=== PATIENT | male | born 2000 | race Caucasian/White ===

== ENCOUNTER 2021-06-03 18:50 | Outpatient (REF) | payer SELFPAY ==
[2021-06-05 10:25] LABS: HIV-1/2 Ag & Ab Screen Negative (Negative)
[2021-06-05 10:48] LABS: Hepatitis A Antibody IgM Negative (Negative); Hepatitis B Core Antibody Negative (Negative); Hepatitis B surface Ag Negative (Negative); Hepatitis C Ab w Rflx HCV PCR Negative (Negative)
[2021-06-05 14:21] LABS: Chlamydia Result Negative (Negative); GC Result Negative (Negative)
== END 2021-06-03 18:51 | disposition home or self-care (01) ==
LOC: LBN 18:50
PROVIDERS: PCP Nurse Practitioner; Visit Provider Physician Assistant
DX: R30.0 Dysuria (principal); Z11.59 Encounter for screening for other viral diseases; Z11.4 Encounter for screening for human immunodeficiency virus [HIV]; Z11.3 Encounter for screening for infections with a predominantly sexual mode of transmission
CPT/HCPCS: 86704; 86709; 86803; 87340; 87389; 87491; 87591

== ENCOUNTER 2021-09-07 11:12 | Emergency (ER) | payer MEDICAID, SELFPAY ==
[2021-09-07 11:22] VITALS: BP 131/71; PULSE 66; RESP 18; TEMP 36.9; O2SAT 99
--- NOTE | 2021-09-07 12:15 | DI.CT_ITS ---
Exam(s) CT HEAD WO EXAM: CT HEAD WO CLINICAL HISTORY: seizure activity. TECHNIQUE: Imaging Protocol: Axial computed tomography images with coronal and sagittal reformatted images were created and reviewed COMPARISON: No exams were available for comparison FINDINGS: Ventricles and Extra axial spaces: Normal in size and morphology for the patient's age. Hemorrhage: None. Cerebral parenchyma: Normal. Midline shift: None. Brainstem/Cerebellum: Normal. Extra-axial asymmetric CSF attenuation collection adjacent to the poste romedial aspect of the right cerebellar hemisphere likely small arachnoid cyst. There is no signific ant mass effect upon the right cerebellum. Calvarium: Normal. Visualized Paranasal sinuses: Opacification of the left frontal sinus. Partial opacification of ante rior left ethmoid sinuses. Mastoids: Clear. Soft Tissues: Unremarkable. IMPRESSION: No acute intracranial process. 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 RADIATION DOSE DELIVERED: 841.93mGy.cm Total DLP DATA REPOSITORY: All CT scans at this facility are submitted to the National Radiology Data Registry (NRDR) Dose Index Registry (DIR) with the [employer] (ACR). RADIATION OPTIMIZATION: All CT scans at this facility use at least one of these dose optimization te chniques: automated exposure control; mA and/or kV adjustment per patient size (includes targeted exa ms where dose is matched to clinical indication); or iterative reconstruction.
--- NOTE | 2021-09-07 12:15 | RT.EKG_ITS ---
APPROVED REPORT Exam: Resting ECG Reason for Exam: siezure activity Patient Location: E HR:62 bpm ECG Measurements Heart Rate 62 AXIS RI 146 P 18 QRSd 93 QRS 48 QT 380 T 40 QTc 385 Conclusion Sinus rhythm...normal P axis, V-rate 60- 99 ST elev, probable normal early repol pattern...ST elevation, age<55
--- NOTE | 2021-09-07 12:21 | ED.GENADUL_ITS ---
Discharge Plan Disposition Patient Disposition: HOME Condition: Stable Discharge Details Clinical Impression: Observed seizure-like activity, Abnormal finding on CT scan Primary Care Provider: Christal Oh ED Provider: Luis Crump Home Meds and New Rx's Prescriptions: New levetiracetam [Keppra] 500 mg tablet 500 mg PO BID Qty: 60 0RF Discharge Instructions Instructions: Laceration (ED), New-Onset Seizure in Adults (ED) Additional Instructions: You have been started on a seizure medicine today called Dalia. Please take as prescribed. This is twice a day dosing and your next dose should be taken tonight. Please follow-up with neurology. Call to schedule an appointment to be seen as soon as possible. Additional outpatient diagnostic testing is indicated. No driving or operating heavy machinery until cleared by your doctor. Please contact your primary care physician to arrange follow-up. Please maintain healthy sleep habits and be sure to get plenty of rest. Return to the ER immediately for any worsening or new concerning symptoms. Referrals: [facility] [Provider Group] Christal Oh, KEN [Primary Care Provider] - Medical Decision Making 1225 --21-year-old male here this morning after having witnessed seizure like activity at 2 AM last night. Patient does have history of head trauma with concussion about 2 years ago. Consider new onset seizure. Patient has had lack of sleep recently which potentially could lower seizure threshold. Plan to obtain CT head and screening labs. Consider arrhythmia. And will check EKG. --EKG was reviewed interpreted by me: Sinus rhythm 60 bpm, ST elevation consistent with early repull pattern. Please see report. [id number] -- CT head was interpreted by radiology: IMPRESSION: 1. No hemorrhage, midline shift, CT evidence for acute territorial infarct. 2. Small well-circumscribed right paracentral extra-axial CSF attenuation posterior fossa focus without significant mass effect on adjacent cerebellar tissue and probable mild bony remodeling, likely an arachnoid cyst; differential includes amanda cisterna magna; midline structures appear present, mitigating against Dandy-Walker spectrum anomalies. 3. Complete left frontal and partial left ethmoid sinus opacification. 4. Given seizure activity, consider brain MRI for improved diagnostic sensitivity. I called and spoke with neurology rehabilitation counselor at [facility] Dr. Barrett and discussed ED presentation and course and CT imaging. CT was sent for review. He notes that lesion on CT is unlikely causing seizure but does agree with outpatient MRI and follow-up. He agrees with starting Keppra 500 twice daily until patient can follow-up and have more definitive testing including EEG. I will refer him to follow-up with Dr. Haddad. HPI General Mode of arrival: ambulatory . Date/Time Provider Initiated Documentation: 09/07/21 11:35 . Limitations to Documentation: no limitations . Information obtained by: patient . HPI Narrative: 21-year-old male here with chief complaint of seizure. Patient notes last night around 2 AM he was working on a motor vehicle injured his hand. While looking at his injury he suddenly became unresponsive and had witnessed generalized tonic-clonic seizure. Per his brother, seizure lasted approximately 3 minutes. He did not bite his tongue or have urinary incontinence. When he came to he was fully alert. He denies associated headache. No recent fever He does state that he has had poor sleep recently only getting a few hours over the past couple days. He does note that he is marijuana yesterday. His mother also smoked and had no side effects. Patient denies other drug use. He drinks alcohol once a month. Related Data Home Medications Medication Instructions Recorded Confirmed levetiracetam 500 mg tablet 500 mg PO BID #60 tabs 09/07/21 (Keppra) Previous Rx's Medication Instructions Recorded levetiracetam 500 mg tablet 500 mg PO BID #60 tabs 09/07/21 (Keppra) Allergies Allergy/AdvReac Type Severity Reaction Status Date / Time No Known Allergies Allergy Verified 09/07/21 11:32 General Stated Complaint: Seizure HENRY: 3 Review of Systems All systems reviewed & are unremarkable except as noted in HPI and below Constitutional Constitutional: Denies fever(s) Cardiovascular Cardiovascular: Denies chest pain and Denies dyspnea Respiratory Respiratory: Denies cough and Denies dyspnea Integumentary/Breasts Comments: Patient is noted insect bite left axilla that is itchy, no known recent tick bites Neurologic Neurologic: Reports as per HPI PFSH All Active Problems (Updated 09/07/21 @ 15:25 by Luis Crump MD) Observed seizure-like activity (Acute) Abnormal finding on CT scan (Acute) Axillary hyperhidrosis (Acute) Depression (Chronic) Anxiety (Chronic) Family History Mother Alcohol abuse Father Asthma Sister , 26 car accident No problems noted. Sister No problems noted. Brother Alcohol abuse Brother No problems noted. Paternal Grandfather Diabetes Social History Smoking/Tobacco Use Status: Former Tobacco Use tobacco type: cigarettes Tobacco: How many years used: 10 Quit status: considering quitting Second Hand Exposure: Yes Smoking risk assessment performed?: Yes Alcohol Intake: current Alcohol Intake frequency: a few times a month Drug use: Rarely Substance use type: marijuana Caregiver/Support person: No Household members: significant other Pets and animals: Yes Pets and animals: cat(s) Sexually active: Yes What is your relationship status?: living with partner How often do you talk on the phone with friends or family?: three or more times per week How often do you get together with friends or relatives?: once per week How often do you attend hindu or cheondoism services?: decline to answer Do you belong to any clubs or organized social groups?: decline to answer Panel score (0-1 are the most socially isolated patients): 2 What type of physical activity do you participate in: weight lifting and running Duration: 15-30 minutes/day Frequency: daily Berenice/Quaker: No preference Special berenice needs: No Seatbelt use: sometimes Helmet use: Yes Drive intox or ride w/intox trailer truck driver: No Do you feel safe at home: Yes Do you feel safe in your relationship?: Yes Exam Const General: cooperative and no acute distress HENMT Head: normocephalic and atraumatic Mouth: moist mucous membranes Eyes Conjunctivae: normal conjunctivae Sclera: normal sclerae EOM: EOM intact bilaterally Resp Auscultation: clear to auscultation bilaterally, no rales, no rhonchi and no wheezes Cardio Rate: regular rate and not tachycardic Rhythm: regular rhythm GI Palpation: soft, not firm, no guarding, no masses, not rigid and nontender Skin Other: Small bite left axilla with very mild surrounding redness, no induration or fluctuance Neuro General: patient alert, patient awake, patient oriented x3 and tone normal Cranial Nerves: CN's II-XI intact bilaterally Cognition: normal cognition Speech: speech normal Gait: normal gait Motor: muscle tone normal throughout and strength 5/5 throughout Sensory Exam: no sensory deficits noted Extrem General: no edema Psych Appearance: grossly normal Mental Status: mental status grossly normal Speech and Movement: speech and movement normal Course Vital Signs Vital signs: Vital Signs Temperature 36.9 C 09/07/21 11:22 Pulse 66 09/07/21 11:22 Respiratory Rate 18 09/07/21 11:22 Blood Pressure 131/71 09/07/21 11:22 Pulse Oximetry 99 09/07/21 11:22 Temperature 36.9 C 09/07/21 11:22 Temperature Source Skin 09/07/21 11:22 Pulse 66 09/07/21 11:22 Respiratory Rate 18 09/07/21 11:22 Blood Pressure 131/71 09/07/21 11:22 Blood Pressure Position Sitting 09/07/21 11:22 Pulse Oximetry 99 09/07/21 11:22 Oxygen Delivery Method Room Air 09/07/21 11:22 Oxygen Flow Rate 0 09/07/21 11:22 Pain Level 5 09/07/21 11:22
[2021-09-07 12:49] LABS: Abs Immature Grans 0.02 10^3/uL (0.0-0.06); Absolute Basophil Count 0.07 10^3/uL (0.0-0.2); Absolute Eosinophil Count 0.56 10^3/uL (0.0-0.7); Absolute Lymphocyte Count 1.23 10^3/uL (1.2-3.4); Absolute Monocyte Count 0.74 10^3/uL (0.1-0.8); Absolute Neutrophil Count 5.58 10^3/uL (1.2-6.7); Basophils % 0.9; Eosinophils % 6.8; HCT 47.6 % (40.0-50.0); HGB 16.1 g/dL (13.5-17.5); Immature Grans % 0.2; MCH 30.6 pg (27.0-33.0); MCHC 33.8 % (32.0-36.0); MCV 91 fL (80-95); MPV 9.6 fL (8.0-11.0); Neutrophils % 68.1; Platelet Count 234 10^3/uL (130-400); RBC 5.26 10^6/uL (4.36-5.78); RDW 12.2 % (11.8-14.1); RDW-SD 40.4 fL
[2021-09-07 13:14] LABS: ALT 23 U/L (16-63); AST 18 U/L (15-37); Albumin 4.2 g/dL (3.4-5.0); Alkaline Phosphatase 143 U/L (46-116); Anion Gap 7.6 mmol/L (3-11); BUN 15 mg/dL (7-18); Bilirubin, Total 0.8 mg/dL (0.2-1.0); CO2 28.4 mmol/L (21.0-32.0); CREATININE 1.1 mg/dL (0.70-1.30); Calcium 8.9 mg/dL (8.5-10.1); Chloride 108 mmol/L (98-107); Glucose 75 mg/dL (74-106); Magnesium 2.2 mg/dL (1.8-2.4); Potassium 4.2 mmol/L (3.5-5.1); Sodium 144 mmol/L (136-145); TSH (W/Ref FT4) 0.41 uIU/mL (0.36-3.74); Total Protein 7.6 g/dL (6.4-8.2)
--- NOTE | 2021-09-07 13:45 | DI.VRAD_ITS ---
PROCEDURE INFORMATION: Exam: CT Head Without Contrast Exam date and time: 09/07/2021 1:08 PM Age: 21 years old Clinical indication: Other: Seizure activity TECHNIQUE: Imaging protocol: Computed tomography of the head without contrast. Radiation optimization: All CT scans at this facility use at least one of these dose optimization techniques: automated exposure control; mA and/or kV adjustment per patient size (includes targeted exams where dose is matched to clinical indication); or iterative reconstruction. COMPARISON: No relevant prior studies available. FINDINGS: Brain: Normal. No hemorrhage. Unremarkable white matter. No mass effect. Small well-circumscribed right paracentral extra-axial CSF attenuation posterior fossa focus without significant mass effect on adjacent cerebellar tissue and probable mild bony remodeling, likely an arachnoid cyst; differential includes amanda cisterna magna; midline structures appear present, mitigating against Dandy-Walker spectrum anomalies. Cerebral ventricles: No ventriculomegaly. Paranasal sinuses: Complete opacification of the left frontal sinus, partial opacification of the left ethmoid sinus. No fluid levels. Mastoid air cells: Visualized mastoid air cells are well aerated. Bones/joints: Unremarkable. No acute fracture. Soft tissues: Unremarkable. IMPRESSION: 1. No hemorrhage, midline shift, CT evidence for acute territorial infarct. 2. Small well-circumscribed right paracentral extra-axial CSF attenuation posterior fossa focus without significant mass effect on adjacent cerebellar tissue and probable mild bony remodeling, likely an arachnoid cyst; differential includes amanda cisterna magna; midline structures appear present, mitigating against Dandy-Walker spectrum anomalies. 3. Complete left frontal and partial left ethmoid sinus opacification. 4. Given seizure activity, consider brain MRI for improved diagnostic sensitivity. Dictated and Authenticated by: Agnes Harrison MD. Ordering:CARLOS Smith MD
[2021-09-07 13:53] VITALS: BP 118/90; PULSE 58; RESP 18; O2SAT 99
--- NOTE | 2021-09-07 15:38 | NUR.NOTE ---
Nursing Note: Referral faxed to [facility] Neurology for new onset seizure, posterior fossa lesion, needs MRI, within the next couple of weeks.
[2021-09-07 15:44] VITALS: BP 125/85; PULSE 70; RESP 16; TEMP 37.2; O2SAT 99
[2021-09-07] MEDS: levETIRAcetam 250 MG TAB 500 MG PO (16:03)
[2021-09-09 11:56] LABS: Lyme Ab w Rflx to Lyme Confirm Negative (Negative)
[2021-09-10 21:42] LABS: Anaplasma phagocytophilum Negative (Negative); B. miyamotoi PCR Negative (Negative); Babesia divergens/MO-1 Negative (Negative); Babesia duncani Negative (Negative); Babesia microti Negative (Negative); Ehrlichia chaffeensis Negative (Negative); Ehrlichia ewingii/canis Negative (Negative); Ehrlichia muris eauclairensis Negative (Negative)
== END 2021-09-07 16:02 | disposition home or self-care (01) ==
PROVIDERS: Emergency Provider Student in an Organized Health Care Education/Training Program; PCP Nurse Practitioner
DX: R56.9 Unspecified convulsions (principal); R93.0 Abnormal findings on diagnostic imaging of skull and head, not elsewhere classified
CPT/HCPCS: 36415; 80053; 87798; 90471; 93005; 99284; 70450; 83735; 84443; 85025; 86618; 93010

== ENCOUNTER 2021-09-30 03:24 | Outpatient (CLI) | payer SELFPAY | END 2021-09-30 03:25 | disposition home or self-care (01) | LOC: LBO 03:27 | PROVIDERS: PCP Nurse Practitioner; Visit Provider Nurse Practitioner ==

== ENCOUNTER 2021-10-08 01:33 | Outpatient (CLI) | payer SELFPAY ==
--- OUTSIDE RECORDS SUMMARY | 2021-10-08 02:00 | XMS_ITS | Encounter Summary ---
:2000 Author Organization [facility] Address [address] [place] [address] Care Team Providers Name Role Phone Keenan Calvillo MD Primary Care Provider Unavailable Encounter Details Date Type Department Care Team Description 06/04/2021 Lab Requisition [facility] Outr Resulting Lab, Pathology & Laboratory Provider [facility] [address] [place], [place] [id number] Social History Tobacco Use Types Packs/Day Years Used Date Never Assessed Sex Assigned at Date Recorded Not on file documented as of this encounter Plan of Treatment Not on filedocumented as of this encounter Procedures Procedure Name Priority Date/Time Associated Comments Diagnosis CHLAMYDIA/N. Routine 06/03/2021 18:40 Results for this GONORRHOEAE AMPLIFIED EDT proced ure are in RNA the results section. documented in this encounter Results CHLAMYDIA/N. GONORRHOEAE AMPLIFIED RNA (06/03/2021 18:40 EDT) Pathologist Sig nature Gonococcus Result Negative Negative [facility] Chlamydia Result Negative Negative [facility] Specimen Urine - Urine, Initial Void Performing Organization Address City/State/ZIP Code Phon e Number [facility] [address] [place] [address] SERVICES documented in this encounter Visit Diagnoses Not on filedocumented in this encounter Care Teams Liaison Officer Relationship Specialty Start Date End Date Keenan Calvillo MD PCP - General 02/01/15 documented as of this encounter
--- OUTSIDE RECORDS SUMMARY | 2021-10-08 02:00 | XMS_ITS | Encounter Summary ---
:2000 Author Organization [facility] Address [address] [place] [address] Care Team Providers Name Role Phone Keenan Calvillo MD Primary Care Provider Unavailable Encounter Details Date Type Department Care Team Description 06/04/2021 Lab Requisition [facility] Outr Resulting Lab, Pathology & Laboratory Provider [facility] [address] [place], [place] [id number] Social History Tobacco Use Types Packs/Day Years Used Date Never Assessed Sex Assigned at Date Recorded Not on file documented as of this encounter Plan of Treatment Not on filedocumented as of this encounter Procedures Procedure Name Priority Date/Time Associated Comments Diagnosis HIV 1/2 ANTIGEN AND Routine 06/03/2021 18:40 Resu lts for this ANTIBODY, 4TH EDT procedure are in GENERATION the results section. documented in this encounter Results HIV 1/2 ANTIGEN AND ANTIBODY, 4TH GENERATION (06/03/2021 18:40 EDT) HIV 1 and 2 NegativeComment: If Negative [facility] Antibody/p24 acute HIV-1 LABORATORY Antigen, 4th infection is SERVICES Generation suspected in a high risk patient, submit plasma specimen for HIV-1 RNA quantitation test. Specimen Blood - Venous blood (substance) Narrative [facility] - 06/05/2021 10:20 EDT Fourth Generation assay performed on the Siemens Centaur XPT. Performing Organization Address City/State/ZIP Code Phon e Number [facility] [address] [place] [address] SERVICES documented in this encounter Visit Diagnoses Not on filedocumented in this encounter Care Teams Student Teaching Coordinator Relationship Specialty Start Date End Date Keenan Calvillo MD PCP - General 02/01/15 documented as of this encounter
--- OUTSIDE RECORDS SUMMARY | 2021-10-08 02:00 | XMS_ITS | Encounter Summary ---
:2000 Author Organization [facility] Address [address] [place] [address] Care Team Providers Name Role Phone Keenan Calvillo MD Primary Care Provider Unavailable Encounter Details Date Type Department Care Team Description 09/07/2021 Lab Requisition [facility] Outr Resulting Lab, Pathology & Laboratory Provider [facility] [address] [place] [id number] Social History Tobacco Use Types Packs/Day Years Used Date Never Assessed Sex Assigned at Date Recorded Not on file documented as of this encounter Plan of Treatment Not on filedocumented as of this encounter Procedures Procedure Name Priority Date/Time Associated Diagnosis Comme nts LYME AB Routine 09/07/2021 12:45 EDT Results for this procedure are i n the results section . documented in this encounter Results LYME AB (09/07/2021 12:45 EDT) Pathologist Sig nature Lyme Ab Negative Negative [facility] Specimen Blood - Venous blood (substance) Performing Organization Address City/State/ZIP Code Phon e Number [facility] [address] [place] [address] SERVICES documented in this encounter Visit Diagnoses Not on filedocumented in this encounter Care Teams Safety Physician Relationship Specialty Start Date End Date Keenan Calvillo MD PCP - General 02/01/15 documented as of this encounter
--- OUTSIDE RECORDS SUMMARY | 2021-10-08 02:00 | XMS_ITS | Encounter Summary ---
:2000 Author Organization [facility] Address [address] [place] [address] Care Team Providers Name Role Phone Unavailable Primary Care Provider Unavailable Encounter Details Date Type Department Care Team Description 03/20/2000 Hospital Encounter [facility] D[facility] [address] [address] [place] [id number] (Wo rk) Social History Tobacco Use Types Packs/Day Years Used Date Never Assessed Sex Assigned at Date Recorded Not on file documented as of this encounter Discharge Disposition Disposition Code Departure Means Destination Auto Discharge documented in this encounter Plan of Treatment Not on filedocumented as of this encounter Visit Diagnoses Not on filedocumented in this encounter
--- OUTSIDE RECORDS SUMMARY | 2021-10-08 02:00 | XMS_ITS | Clinical Summary ---
:2000 Author Organization [facility] Address [address] [place] [address] Care Team Providers Name Role Phone Keenan Calvillo MD Primary Care Provider Unavailable Encounters Date Type Specialty Care Team Description 09/07/2021 Lab Requisition Clinical Laboratory Outr Resulting Lab , Provider from Last 3 Months Social History Tobacco Use Types Packs/Day Years Used Date Never Assessed Sex Assigned at Date Recorded Not on file Plan of Treatment Health Maintenance Due Date Last Done Comments Hepatitis C Screen 2000 COVID-19 Vaccine (1) 2003 Procedures Procedure Name Priority Date/Time Associated Diagnosis Comme nts LYME AB Routine 09/07/2021 12:45 EDT Results for this procedure are i n the results section . from Last 3 Months Results LYME AB (09/07/2021 12:45 EDT) Pathologist Sig nature Lyme Ab Negative Negative [facility] Specimen Blood - Venous blood (substance) Performing Organization Address City/State/ZIP Code Phon e Number [facility] [address] [place] [address] SERVICES from Last 3 Months Care Teams Rn Hospital Relationship Specialty Start Date End Date Keenan Calvillo MD PCP - General 02/01/15
== END 2021-10-08 01:34 | disposition home or self-care (01) ==
LOC: LBO 01:34
PROVIDERS: PCP Nurse Practitioner; Visit Provider Nurse Practitioner

== ENCOUNTER → 2021-10-11 01:29 | Outpatient (CLI) | payer SELFPAY | PROVIDERS: PCP Nurse Practitioner; Visit Provider Nurse Practitioner ==

== ENCOUNTER 2021-11-06 02:51 | Outpatient (CLI) | payer MEDICAID, SELFPAY ==
[2021-11-06 13:46] LABS: ALT 21 U/L (16-63); AST 16 U/L (15-37); Alkaline Phosphatase 131 U/L (46-116); Bilirubin, Total 0.6 mg/dL (0.2-1.0); Calculated LDL 36 mg/dL (<100); Cholesterol 102 mg/dL (<200); HDL Cholesterol 57 mg/dL (40-60); Total Protein 7.6 g/dL (6.4-8.2); Triglyceride 48 mg/dL (<150)
[2021-11-06 13:59] LABS: Bilirubin, Direct 0.2 mg/dL (0.0-0.2)
== END 2021-11-06 02:52 | disposition home or self-care (01) ==
LOC: LBO 02:51
PROVIDERS: PCP Nurse Practitioner; Visit Provider Nurse Practitioner
DX: R74.8 Abnormal levels of other serum enzymes (principal); Z13.6 Encounter for screening for cardiovascular disorders
CPT/HCPCS: 36415; 80061; 80076

== ENCOUNTER → 2021-11-14 00:52 | Outpatient (CLI) | payer MEDICAID, SELFPAY ==
--- NOTE | 2021-11-14 07:15 | DI.MRI_ITS ---
Exam(s) MR BRAIN WO EXAM: MR BRAIN WO CLINICAL HISTORY: f/u abn CT, seizures,R93.89,R56.9 TECHNIQUE: Multiplanar multisequence MRI of the brain was performed. COMPARISON: CT CT HEAD WO from 09/07/2021 FINDINGS: The ventricular system is normal in appearance. Incidental small posterior fossa arachnoid cyst noted . No signal abnormality identified in the brain. The orbital and temporal bone structures appear intact as does the pituitary. Diffusion weighted imaging shows no evidence of infarction. Susceptibility weighted imaging shows no evidence of intracranial hemorrhage. There is normal flow void in the [place] vasculature. Note is made of abnormal signal in the left frontal sinus consistent with a chronic sinusitis. No gr oss sinus cavity expansion noted. Some ethmoid involvement is also noted on the left. IMPRESSION: Normal brain MRI. Left frontal chronic sinusitis. DATA REPOSITORY:
== END ==
PROVIDERS: PCP Nurse Practitioner; Visit Provider Nurse Practitioner
DX: R56.9 Unspecified convulsions (principal); J32.1 Chronic frontal sinusitis; R93.89 Abnormal findings on diagnostic imaging of other specified body structures
CPT/HCPCS: 70551

== ENCOUNTER 2022-02-05 13:49 | Outpatient (REF) | payer MEDICAID, SELFPAY ==
[2022-02-07 14:43] LABS: Chlamydia Result Negative (Negative); GC Result Negative (Negative)
== END 2022-02-05 13:50 | disposition home or self-care (01) ==
LOC: LBN 13:49
PROVIDERS: Physician Assistant; PCP Nurse Practitioner Family; Visit Provider Nurse Practitioner Family
DX: Z11.3 Encounter for screening for infections with a predominantly sexual mode of transmission (principal)
CPT/HCPCS: 87491; 87591

== ENCOUNTER 2022-04-28 16:22 | Outpatient (REF) | payer MEDICAID, SELFPAY ==
[2022-04-30 15:06] LABS: Chlamydia Result Negative (Negative); GC Result Negative (Negative)
== END 2022-04-28 16:23 | disposition home or self-care (01) ==
LOC: LBN 16:22
PROVIDERS: PCP Nurse Practitioner Family; Visit Provider Nurse Practitioner Family
DX: Z11.3 Encounter for screening for infections with a predominantly sexual mode of transmission (principal); L98.8 Other specified disorders of the skin and subcutaneous tissue
CPT/HCPCS: 87491; 87591; 87070; 87205

== ENCOUNTER 2022-04-28 16:26 | Outpatient (CLI) | payer MEDICAID, SELFPAY ==
[2022-04-28 17:05] LABS: Abs Immature Grans 0.02 10^3/uL (0.0-0.06); Absolute Basophil Count 0.08 10^3/uL (0.0-0.2); Absolute Eosinophil Count 0.44 10^3/uL (0.0-0.7); Absolute Lymphocyte Count 1.85 10^3/uL (1.2-3.4); Absolute Monocyte Count 0.61 10^3/uL (0.1-0.8); Absolute Neutrophil Count 4.65 10^3/uL (1.2-6.7); Eosinophils % 5.8; HCT 50.8 % (40.0-50.0); HGB 16.8 g/dL (13.5-17.5); Immature Grans % 0.3; Lymphocytes % 24.2; MCH 30.9 pg (27.0-33.0); MCHC 33.1 % (32.0-36.0); MCV 93 fL (80-95); MPV 9.3 fL (8.0-11.0); Neutrophils % 60.7; Platelet Count 267 10^3/uL (130-400); RBC 5.44 10^6/uL (4.36-5.78); RDW 12.3 % (11.8-14.1); RDW-SD 42.1 fL; WBC 7.65 10^3/uL (4.4-10.8)
[2022-04-28 17:54] LABS: Lipase 47 U/L (16-77)
[2022-04-30 10:10] LABS: HIV-1/2 Ag & Ab Screen Negative (Negative)
[2022-04-30 10:20] LABS: HSV Type 1 Ab, IgG Positive (Negative); HSV Type 2 Ab, IgG Negative (Negative)
[2022-04-30 10:29] LABS: Hepatitis C Ab w Rflx HCV PCR Negative (Negative)
[2022-04-30 10:43] LABS: Syphilis Serology (RPR) Negative (Negative)
== END 2022-04-28 16:27 | disposition home or self-care (01) ==
PROVIDERS: PCP Nurse Practitioner Family; Visit Provider Nurse Practitioner Family
DX: R10.9 Unspecified abdominal pain (principal); L98.8 Other specified disorders of the skin and subcutaneous tissue
CPT/HCPCS: 36415; 83690; 86803; 87389; 87529; 85025; 86592; 86695; 86696

== ENCOUNTER 2022-08-21 06:24 | Emergency (ER) | payer MEDICAID, SELFPAY ==
[2022-08-21 06:27] VITALS: BP 144/83; PULSE 68; RESP 16; O2SAT 100
[2022-08-21 06:35] VITALS: RESP 16
--- NOTE | 2022-08-21 06:38 | ED.GENADUL_ITS ---
Discharge Plan Disposition Patient Disposition: Home Condition: Good Discharge Details Clinical Impression: Gastric irritation, Vomiting Primary Care Provider: Misti Jean Baptiste ED Provider: Mario Marcelo Home Meds and New Rx's Prescriptions: New famotidine 40 mg tablet 40 mg PO BID Qty: 30 0RF sucralfate [Carafate] 1 gram tablet 1 g PO BID Qty: 60 0RF Continued omeprazole 20 mg capsule,delayed release(DR/EC) 20 mg PO DAILY Qty: 60 0RF Patient Comments: not taking Discharge Instructions Instructions: Gastritis (ED) Additional Instructions: At this time your laboratory work-up has shown no evidence of significant poisoning. I suspect your symptoms are from an irritated gastric ulcer. Please avoid any spicy foods, tomato-based products, alcohol, or citrus-based products. Please take the famotidine and Carafate that has been prescribed to you and sent to your pharmacy. If you notice any worsening of your symptoms, or any new symptoms such as vomiting, diarrhea, fever, chills, shortness of breath, chest pain, numbness, weakness, or fainting , please return immediately to the emergency department for reevaluation. Please follow up with your primary care provider as soon as possible for reassessment and reevaluation. As always, it was a pleasure participating in your medical care today. Referrals: Misti Jean Baptiste, KEN [Primary Care Provider] - Medical Decision Making 22-year-old male presents today for evaluation of an acid like sensation in his mouth. Patient states that he took a swig of santa liquor last evening from a brand-new bottle. He states that it tasted acidic, and he did not take any more swigs. He states that shortly thereafter he felt nauseous, and about an hour or so later he felt more nauseous and had few episodes of vomiting. He took a shower, when he woke up this morning he noticed an acid taste in his mouth, drank 2 sodas and came to the ER for further evaluation. He is concerned that the brand-new bottle of liquor may have had moronic acid in it however he denies anyone breaking into his apartment. He states that the alcohol was in a brand-new sealed bottle which he bought from the liquor store in [place], and he states that no one could have laced it at his house. Upon further questioning he does not have a specific reason as to why it may have been that acid in particular, but he states that he is concerned that it may have been that acid because of the current acid taste in his mouth. He has no other complaints at this time. No blood in his vomitus. No diarrhea. Physical exam demonstrates dry mucous membranes, nontender abdomen, stable vital signs. I suspect the patient had alcohol which developed mild alcoholic gastritis. He then subsequently had vomiting and is tasting the stomach acid in his mouth. Low likelihood for potential for toxic ingestion otherwise. We will rehydrate give Carafate and GI cocktail, monitor closely and reassess. He states he is not a regular alcohol drinker otherwise. 7:40 AM Laboratory work-up has returned, mildly elevated white count, bilirubin slightly elevated as well at 1.3. BUN high at 21 suggestive of mild dehydration. Alk phos also elevated. Lipase normal. Alcohol level negative. On reassessment the patient has vomited again. He now complains of pain in the umbilical and right upper quadrant region. Minimal tenderness on exam. With the elevation in his bilirubin, this does certainly increase concern for potential gallbladder pathology. Appendicitis less likely but on the differential now as the patient's exam has changed. We will add a CAT scan with contrast for further assessment. If the CAT scan is negative I do feel that the patient would still be a good candidate potentially for discharge if no acute process is noted. I will prescribe Carafate and famotidine for outpatient use as I still have a high suspicion for gastric irritation and mild clinical gastritis. Patient will be signed out to my colleague for follow-up on labs and imaging. HPI General Date/Time Provider Initiated Documentation: 08/21/22 06:27 . HPI Narrative: 22-year-old male presents today for evaluation of an acid like sensation in his mouth. Patient states that he took a swig of santa liquor last evening from a brand-new bottle. He states that it tasted acidic, and he did not take any more swigs. He states that shortly thereafter he felt nauseous, and about an hour or so later he felt more nauseous and had few episodes of vomiting. He took a shower, when he woke up this morning he noticed an acid taste in his mouth, drank 2 sodas and came to the ER for further evaluation. He is concerned that the brand-new bottle of liquor may have had moronic acid in it however he denies anyone breaking into his apartment. He states that the alcohol was in a brand-new sealed bottle which he bought from the liquor store in [place], and he states that no one could have laced it at his house. Upon further questioning he does not have a specific reason as to why it may have been that acid in particular, but he states that he is concerned that it may have been that acid because of the current acid taste in his mouth. He has no other complaints at this time. No blood in his vomitus. No diarrhea. Related Data Home Medications Medication Instructions Recorded Confirmed omeprazole 20 mg capsule,delayed 20 mg PO DAILY #60 caps 12/10/21 08/21/22 release famotidine 40 mg tablet 40 mg PO BID #30 tabs 08/21/22 sucralfate 1 gram tablet (Carafate) 1 g PO BID #60 tabs 08/21/22 Previous Rx's Medication Instructions Recorded omeprazole 20 mg capsule,delayed 20 mg PO DAILY #60 caps 12/10/21 release famotidine 40 mg tablet 40 mg PO BID #30 tabs 08/21/22 sucralfate 1 gram tablet (Carafate) 1 g PO BID #60 tabs 08/21/22 Allergies Allergy/AdvReac Type Severity Reaction Status Date / Time No Known Allergies Allergy Verified 08/21/22 06:38 General Stated Complaint: OD/Poison HENRY: 3 Review of Systems All systems reviewed & are unremarkable except as noted in HPI and below PFSH All Active Problems (Updated 08/21/22 @ 07:24 by Mario Marcelo DO) Gastric irritation (Acute) Vomiting (Acute) Elevated alkaline phosphatase level (Acute) Axillary hyperhidrosis (Acute) Depression (Chronic) Anxiety (Chronic) Medical History Infestation by Phthirus pubis Family History Mother Alcohol abuse Father Asthma Sister , 26 car accident No problems noted. Sister No problems noted. Brother Alcohol abuse Brother No problems noted. Paternal Grandfather Diabetes Social History Smoking/Tobacco Use Status: Current every day Tobacco Type: cigarettes Tobacco: How many years used: 10 Quit status: considering quitting Second Hand Exposure: Yes Smoking risk assessment performed?: Yes Alcohol Intake: current Alcohol Intake frequency: a few times a month Drug use: Rarely Substance use type: does not use Caregiver/Support person: No Household members: significant other Pets and animals: Yes Pets and animals: cat(s) Sexually active: Yes What is your relationship status?: living with partner How often do you talk on the phone with friends or family?: three or more times per week How often do you get together with friends or relatives?: once per week How often do you attend mosque or anabaptist services?: decline to answer Do you belong to any clubs or organized social groups?: decline to answer Panel score (0-1 are the most socially isolated patients): 2 What type of physical activity do you participate in: weight lifting and running Duration: 15-30 minutes/day Frequency: daily Berenice/Taoist: No preference Special berenice needs: No Seatbelt use: sometimes Helmet use: Yes Drive intox or ride w/intox motor vehicle escort driver: No Do you feel safe at home: Yes Do you feel safe in your relationship?: Yes Exam Narrative Exam Narrative: 1.Const: Well-nourished, Well-developed, appearing stated age 2.Eyes: PERRL, no conjunctival injection, and symmetrical lids. 3.ENT: Atraumatic external nose and ears. Moist MM. Neck: Symmetric, trachea midline, No thyromegaly. 4.CVS: +S1/S2, No murmurs or gallops. Peripheral pulses 2+ and equal in all extremities. Brisk capillary refill in all extremities. 5.RESP: Unlabored respiratory effort. Clear to auscultation bilaterally. No wheezes rales or rhonchi 6.GI: Soft, Nontender/Nondistended, No hepatosplenomegaly. No guarding or rebound. 7.MSK: Normocephalic/Atraumatic, Extremities w/o deformity or ttp No cyanosis or clubbing, Normal movement of all extremities 8.Skin: Warm, Dry. No rashes or lesions. 9.Neuro: emergency room orderly II-XII grossly intact. Sensation grossly intact, no focal neurologic deficits. 10.Psych: (AAO) x3. Appropriate mood and affect Course Vital Signs Vital signs: Vital Signs Pulse 68 08/21/22 06:27 Respiratory Rate 16 08/21/22 06:27 Blood Pressure 144/83 H 08/21/22 06:27 Pulse Oximetry 100 08/21/22 06:27 Temperature Source Oral 08/21/22 06:27 Pulse 68 08/21/22 06:27 Respiratory Rate 16 08/21/22 06:35 Respiratory Effort Normal 08/21/22 06:35 Respiratory Depth Normal 08/21/22 06:35 Respiratory Pattern Normal 08/21/22 06:35 Blood Pressure 144/83 H 08/21/22 06:27 Pulse Oximetry 100 08/21/22 06:27 Oxygen Delivery Method Room Air 08/21/22 06:27 Oxygen Flow Rate 0 08/21/22 06:27 Pain Level 4 08/21/22 06:27 Comment burning, squeezing abdominal pain 08/21/22 06:27
[2022-08-21] MEDS: Normal Saline 1,000 ML 1000 ML IV (06:44)
[2022-08-21] MEDS: Sucralfate 1 GM TAB PO (06:44)
[2022-08-21 06:50] LABS: Abs Immature Grans 0.04 10^3/uL (0.0-0.06); Absolute Basophil Count 0.05 10^3/uL (0.0-0.2); Absolute Eosinophil Count 0.35 10^3/uL (0.0-0.7); Absolute Lymphocyte Count 0.75 10^3/uL (1.2-3.4); Absolute Neutrophil Count 11.24 10^3/uL (1.2-6.7); Basophils % 0.4; Eosinophils % 2.7; HCT 50.6 % (40.0-50.0); HGB 17.6 g/dL (13.5-17.5); Immature Grans % 0.3; Lymphocytes % 5.7; MCH 30.8 pg (27.0-33.0); MCHC 34.8 % (32.0-36.0); MCV 89 fL (80-95); MPV 9.5 fL (8.0-11.0); Monocytes % 5.3; Neutrophils % 85.6; Platelet Count 187 10^3/uL (130-400); RBC 5.72 10^6/uL (4.36-5.78); RDW-SD 39.1 fL; WBC 13.13 10^3/uL (4.4-10.8)
[2022-08-21] MEDS: Mylanta Suspension 30 ML CUP (06:56)
[2022-08-21 07:26] LABS: ALT 36 U/L (16-63); AST 24 U/L (15-37); Albumin 4.7 g/dL (3.4-5.0); Alkaline Phosphatase 153 U/L (46-116); Anion Gap 11.9 mmol/L (3-11); BUN 21 mg/dL (7-18); Bilirubin, Total 1.3 mg/dL (0.2-1.0); CO2 25.1 mmol/L (21.0-32.0); CREATININE 1.2 mg/dL (0.70-1.30); Calcium 9.5 mg/dL (8.5-10.1); Chloride 104 mmol/L (98-107); Glucose 89 mg/dL (74-106); Lipase 54 U/L (16-77); Potassium 4.1 mmol/L (3.5-5.1); Sodium 141 mmol/L (136-145)
[2022-08-21 07:28] LABS: ETHANOL BLOOD < 3.0 mg/dL (<10)
--- NOTE | 2022-08-21 07:30 | DI.CT_ITS ---
Exam(s) CT ABDOMEN PELVIS W EXAM: CT ABDOMEN PELVIS W CLINICAL HISTORY: ruq and rlq pain, r/o gb and appe. TECHNIQUE: Imaging Protocol: Axial computed tomography images with coronal and sagittal reformatted images were created and reviewed CONTRAST MATERIAL: Intravenous: Omnipaque-350 100cc Oral: None COMPARISON: No exams were available for comparison FINDINGS: VISUALIZED LUNG BASES: No nodules nor pleural effusions evident. ABDOMEN: There is no ascites. LIVER: There are no focal hepatic lesions evident. No dilated intrahepatic ducts. GALLBLADDER/BILIARY: No obvious gallbladder pathology. CBD is not dilated. PANCREAS: No evidence of pancreatic mass nor dilatation of the pancreatic duct. SPLEEN: Spleen is not enlarged. No obvious intrasplenic lesions. Splenic and portal veins are paten t. ADRENALS: There are no significant adrenal masses. KIDNEYS:Left kidney unremarkable. Right kidney slightly malrotated but otherwise unremarkable. The right kidney exhibits an extrarenal pelvis but no true hydronephrosis. Ureters are not dilated. No obvious abnormality in the nondistended urinary bladder.. ABDOMINAL AORTA: Abdominal aorta is not enlarged. LYMPH NODES:There is no retroperitoneal nor paraaortic adenopathy. ABDOMINAL WALL: No evidence of significant anterior abdominal wall nor inguinal hernia. GI: There is no evidence of bowel obstruction but appearance of small bowel loops suggest an enteriti s pattern. Degenerative side are dilated exhibits slightly somewhat thickened jason.. The colon is fluid-filled. PELVIS: GI: No evidence of appendicitis.No evidence of sigmoid diverticulitis. LYMPH NODES: There is no intrapelvic nor inguinal adenopathy. REPRODUCTIVE: Prostate not enlarged. URINARY BLADDER: No calculi nor obvious masses evident OSSEOUS: No fractures nor significant osseous lesions. Limbus vertebrae incidentally noted at L3 and L4 levels. IMPRESSION: 1. No evidence of acute appendicitis, as per request. 2. There is a diffuse small bowel enteritis pattern. There is no evidence of bowel obstruction. No ascites. 3. Moderately malrotated right kidney. Ipsilateral extrarenal pelvis but no true hydronephrosis nor hydroureter. 4. No obvious gallbladder pathology on this CT scan. Called by myself to ER physician. RADIATION DOSE DELIVERED: 750.81mGy.cm Total DLP DATA REPOSITORY: All CT scans at this facility are submitted to the National Radiology Data Registry (NRDR) Dose Index Registry (DIR) with the [employer] (ACR). RADIATION OPTIMIZATION: All CT scans at this facility use at least one of these dose optimization te chniques: automated exposure control; mA and/or kV adjustment per patient size (includes targeted exa ms where dose is matched to clinical indication); or iterative reconstruction.
[2022-08-21] MEDS: Ondansetron 4 MG/2 ML VIAL IVP (07:38)
[2022-08-21] MEDS: Omnipaque 350 MG/ML 100 ML BTL IJ (07:59)
[2022-08-21] MEDS: Normal Saline - Diluent 50 ML VIAL IJ (07:59)
[2022-08-21 09:26] VITALS: BP 129/78; PULSE 72; RESP 18; TEMP 37.3; O2SAT 99
== END 2022-08-21 09:29 | disposition home or self-care (01) ==
PROVIDERS: Student in an Organized Health Care Education/Training Program; Emergency Provider Emergency Medicine; PCP Nurse Practitioner Family
DX: R11.10 Vomiting, unspecified (principal); K25.9 Gastric ulcer, unspecified as acute or chronic, without hemorrhage or perforation; K29.70 Gastritis, unspecified, without bleeding
CPT/HCPCS: 80053; 83690; 96361; 96374; 99285; 74177; 80320; 85025; 99284; J2405; J3490

== ENCOUNTER 2022-12-09 07:28 | Emergency (ER) | payer MEDICAID, SELFPAY ==
[2022-12-09 07:33] VITALS: BP 141/87; PULSE 80; RESP 18; TEMP 36.8; O2SAT 97
[2022-12-09] MEDS: Erythromycin Ophth Oint 3.5 GM TUBE OP (08:04)
[2022-12-09] MEDS: Balanced Salt Solution 15 ML BTL OP (08:04)
[2022-12-09] MEDS: Fluorescein STRIPS 100/BOX 1 MG OP (08:04)
--- NOTE | 2022-12-09 08:04 | W.ED.GENAD ---
Discharge Plan Disposition Patient Disposition: Home Discharge Details Chief Complaint: EyeProblem Clinical Impression: Abrasion of cornea, right Primary Care Provider: Misti Jean Baptiste ED Provider: Haider Alcala Home Meds and New Rx's Prescriptions: No Action No Known Home Meds Discharge Instructions Instructions: Corneal Abrasion (ED) Additional Instructions: use the erythromycin ointment twice daily for 5 days or until the tube is gone follow up with [facility] if not better within 3 days if you have severe worsening pain, fevers or loss of vision return to the emergency department Medical Decision Making 22 yo male who denies chronic medical problems comes in with cc of right eye discomfort. He was weed wacking last night and a branch hit him in the right eye. No falls or other trauma, has had right eye discomfort since so came here. He denies loss of vision but states when he looks at lights the color seems off. Denies drainage or deep eye pain. The right eye conjunctiva is erythematous. Perrl, eomi with no pain. No periorbital swelling. 20/20 vision in the eye. He had immediate relief of pain with placement of topical tetracaine. No foreign body even under eyelid, flourescein staining shows no evidence of globe rupture, has a 2mm corneal abrasion on the left lower eye at the 4 oclock position on the conjunctiva, no hyphema or iritis on exam. Will place on prophylactic erythromycin and advised if not better in 2-3 days to follow up [facility], return precautions given Differential Diagnosis Differential Diagnosis: corneal abrasion, traumatic iritis, conjunctivitis HPI General Mode of arrival: ambulatory. Date/Time Provider Initiated Documentation: 12/09/22 07:55. Limitations to Documentation: no limitations. Information obtained by: patient. History of Present Illness 22 year old M presents to the emergency department with the chief complaint of right eye discomfort, described as moderate, Quality is described as aching, and is localized to the eyes and right. Patient started experiencing this day(s) (1) and it has been constant. No relieving factors improve symptom(s), No exacerbating factors reported . Patient notes no other symptoms.. Patient did receive the following treatments prior to arrival, none Related Data Home Medications Medication Instructions Recorded Confirmed Unknown [No Known Home Meds] 10/28/22 12/09/22 Allergies Allergy/AdvReac Type Severity Reaction Status Date / Time No Known Allergies Allergy Verified 10/28/22 15:11 General Stated Complaint: EyeProblem HENRY: 4 Review of Systems All systems reviewed & are unremarkable except as noted in HPI and below Constitutional Constitutional: Denies chills, Denies fever(s) and Denies weakness Eyes Eyes: Denies loss of vision Cardiovascular Cardiovascular: Denies chest pain and Denies dyspnea Respiratory Respiratory: Denies cough and Denies dyspnea Gastrointestinal Gastrointestinal: Denies abdominal pain, Denies nausea and Denies vomiting Neurologic Neurologic: Denies loss of vision and Denies weakness PFSH All Active Problems (Updated 12/09/22 @ 08:17 by Haider Alcala MD) Abrasion of cornea, right (Acute) Elevated alkaline phosphatase level (Acute) Axillary hyperhidrosis (Acute) Depression (Chronic) Anxiety (Chronic) Medical History Infestation by Phthirus pubis Family History Mother Alcohol abuse Father Asthma Sister , 26 car accident No problems noted. Sister No problems noted. Brother Alcohol abuse Brother No problems noted. Paternal Grandfather Diabetes Social History Smoking/Tobacco Use Status: Current-Occasional Tobacco Type: cigarettes Tobacco: How many years used: 10 Quit status: considering quitting Second Hand Exposure: Yes Smoking risk assessment performed?: Yes Alcohol Intake: current Alcohol Intake frequency: a few times a month Drug use: Rarely Substance use type: does not use Caregiver/Support person: No Household members: significant other Pets and animals: Yes Pets and animals: cat(s) Sexually active: Yes What is your relationship status?: living with partner How often do you talk on the phone with friends or family?: three or more times per week How often do you get together with friends or relatives?: once per week How often do you attend latter day or oriental orthodox services?: decline to answer Do you belong to any clubs or organized social groups?: decline to answer Panel score (0-1 are the most socially isolated patients): 2 What type of physical activity do you participate in: weight lifting and running Duration: 15-30 minutes/day Frequency: daily Berenice/Methodist: No preference Special berenice needs: No Seatbelt use: sometimes Helmet use: Yes Drive intox or ride w/intox waste collection driver: No Do you feel safe at home: Yes Do you feel safe in your relationship?: Yes Exam Const General: no acute distress Orientation: alert HENMT Head: normal to inspection Ears: external ears normal General nose exam: external nose normal Mouth: moist mucous membranes Eyes Alignment and Position: alignment normal Periorbital: periorbital findings normal Eyelids: eyelids normal Pupils: PERRL EOM: EOM intact bilaterally Neck Neck: normal visual inspection Resp Effort & Inspection: normal respiratory effort and able to speak in complete sentences Cardio Rate: regular rate Skin General skin exam: no rashes or lesions noted Neuro General: patient alert and patient oriented x3 Extrem General: normal to inspection Psych Mental Status: mental status grossly normal Course Vital Signs Vital signs: Vital Signs Temperature 36.8 C 12/09/22 07:33 Pulse 80 12/09/22 07:33 Respiratory Rate 18 12/09/22 07:33 Blood Pressure 141/87 H 12/09/22 07:33 Pulse Oximetry 97 12/09/22 07:33 Temperature 36.8 C 12/09/22 07:33 Temperature Source Oral 12/09/22 07:33 Pulse 80 12/09/22 07:33 Respiratory Rate 18 12/09/22 07:33 Respiratory Effort Normal, Non-Labored 12/09/22 07:42 Blood Pressure 141/87 H 12/09/22 07:33 Pulse Oximetry 97 12/09/22 07:33 Pain Level 7 12/09/22 07:33
== END 2022-12-09 09:02 | disposition home or self-care (01) ==
PROVIDERS: Emergency Provider Emergency Medicine; PCP Nurse Practitioner Family
DX: S05.01XA Injury of conjunctiva and corneal abrasion without foreign body, right eye, initial encounter (principal); F17.290 Nicotine dependence, other tobacco product, uncomplicated; W20.8XXA Other cause of strike by thrown, projected or falling object, initial encounter; Y93.H2 Activity, gardening and landscaping; Y92.017 Garden or yard in single-family (private) house as the place of occurrence of the external cause; Y99.9 Unspecified external cause status
CPT/HCPCS: 99282